=== PATIENT | female | born 1985 | race African-American/Black ===

== ENCOUNTER 2016-07-13 17:28 | Emergency (ER) | payer OTHER ==
[~2016-07-13] VITALS: Ht 154.9 cm; Wt 42.6 kg
[~2016-07-13 17:28] MED LIST: APAP500 PO; DERMOPLAST SPRA56 ML; IBUPROFEN 600600 M1 PO; NORCO 5-325 TA1 EACH PO; TUCKS1 EAC1 TP
[2016-07-13] MEDS ORDERED: PAROXETINE HCL20 MG PO (17:33)
[2016-07-13 17:51] LABS: ABSOLUTE NEUTROPHILS 6.3 thou/uL (1.4-8.2); BASOPHILS 0.6 % (0.0-2.0); EOSINOPHILS 0.2 % (0.0-3.0); HEMATOCRIT 40.8 % (37.0-47.0); HEMOGLOBIN 13.6 gm/dL (12.0-15.0); LYMPHOCYTES 14.2 % (24.0-44.0); MCHC 33.3 % (28.0-37.0); MCV 90.1 fL (80.0-100.0); MONOCYTES 2.7 % (1.0-8.0); PLATELET COUNT 277 thou/uL (150-400); POLYS 82.3 % (36.0-66.0); RBC 4.53 mil/uL (4.20-5.00); WBC 7.7 thou/uL (4.0-11.0)
[2016-07-13 17:56] LABS: CALCIUM 8.7 mg/dL (8.5-10.1); CREATININE 0.8 mg/dL (0.6-1.3); POTASSIUM 3.5 mmol/L (3.5-5.1)
[2016-07-13 18:00] LABS: MANUAL DIFF NO
[2016-07-13 18:02] LABS: ALBUMIN 4.1 g/dL (3.4-5.0); TOTAL BILIRUBIN 0.2 mg/dL (<0.1-1.0); TOTAL PROTEIN 7.6 g/dL (6.4-8.2)
[2016-07-13 18:10] LABS: URINE BILIRUBIN NEGATIVE (Negative); URINE BLOOD NEGATIVE (Negative); URINE COLOR YELLOW; URINE GLUCOSE-RANDOM* NEGATIVE (Negative); URINE KETONES NEGATIVE (Negative); URINE NITRITE NEGATIVE (Negative); URINE PROTEIN (DIPSTICK) NEGATIVE (Negative); URINE SPECIFIC GRAVITY 1.025 (1.003-1.035); URINE UROBILINOGEN 0.2 E.U./dl (0.2-1.0)
[2016-07-13] MEDS ORDERED: PROTONIX 20 MG20 M1 PO (18:26)
[2016-07-13] MEDS ORDERED: ONDANSETRON HCL4 M2 PO (18:26)
[2016-07-13 18:47] VITALS: BP 134/79
== END 2016-07-13 18:48 | disposition home or self-care (01) ==
LOC: ER 17:28
PROVIDERS: Nurse Practitioner Family
DX: K21.9 Gastro-esophageal reflux disease without esophagitis (principal); J45.909 Unspecified asthma, uncomplicated; F41.9 Anxiety disorder, unspecified; F17.210 Nicotine dependence, cigarettes, uncomplicated

== ENCOUNTER 2017-11-23 18:33 | Emergency (ER) | payer OTHER ==
[~2017-11-23] VITALS: Ht 152.4 cm; Wt 42.2 kg
[~2017-11-23 18:33] MED LIST changes: +ONDANSETRON HCL4 M2 PO; +PAROXETINE HCL20 MG PO; +PROTONIX 20 MG20 M1 PO
[2017-11-23] MEDS ORDERED: CELEXA10 MG PO (19:06)
[2017-11-23] MEDS ORDERED: ACCUNEB SO1.25 MG/1 INH (19:06)
[2017-11-23 19:18] LABS: ABSOLUTE NEUTROPHILS 11.1 thou/uL (1.4-8.2); BASOPHILS 0.3 % (0.0-2.0); EOSINOPHILS 0.6 % (0.0-3.0); HEMATOCRIT 38.6 % (37.0-47.0); HEMOGLOBIN 12.9 gm/dL (12.0-15.0); LYMPHOCYTES 12.2 % (24.0-44.0); MCH 29.6 pg (26.0-34.0); MCHC 33.5 g/dL (28.0-37.0); MCV 88.6 fL (80.0-100.0); MONOCYTES 4.5 % (1.0-8.0); PLATELET COUNT 319 thou/uL (150-400); POLYS 82.4 % (36.0-66.0); RBC 4.36 mil/uL (4.20-5.00); RDW 13.3 % (10.5-14.5); WBC 13.5 thou/uL (4.0-11.0)
[2017-11-23 19:26] LABS: CALCIUM 8.9 mg/dL (8.5-10.1); POTASSIUM 3.5 mmol/L (3.5-5.1)
[2017-11-23 19:31] LABS: ALBUMIN 3.4 g/dL (3.4-5.0); TOTAL BILIRUBIN 0.6 mg/dL (<0.1-1.0); TOTAL PROTEIN 8.2 g/dL (6.4-8.2)
[2017-11-23] MEDS ORDERED: DOXYCYCLINE 10100 MG PO (19:47)
[2017-11-23 20:05] VITALS: BP 103/64
== END 2017-11-23 20:06 | disposition home or self-care (01) ==
LOC: ER 18:33
PROVIDERS: Emergency Medicine
DX: J18.9 Pneumonia, unspecified organism (principal); J45.909 Unspecified asthma, uncomplicated; K21.9 Gastro-esophageal reflux disease without esophagitis; F41.9 Anxiety disorder, unspecified; F17.210 Nicotine dependence, cigarettes, uncomplicated

== ENCOUNTER 2018-03-29 11:01 | Emergency (ER) | payer OTHER ==
[~2018-03-29] VITALS: Ht 152.4 cm; Wt 45.4 kg
[~2018-03-29 11:01] MED LIST changes: +ACCUNEB SO1.25 MG/1 INH; +CELEXA10 MG PO; +DOXYCYCLINE 10100 MG PO
[2018-03-29] MEDS ORDERED: ZANTAC 150MG T150 MG PO (11:10)
[2018-03-29] MEDS ORDERED: TRAMADOL 50 MG50 MG PO (11:28)
[2018-03-29] MEDS ORDERED: CELEXA10 MG PO (11:28)
[2018-03-29] MEDS ORDERED: PENICILLIN VK500 M1 PO (11:28)
[2018-03-29 11:50] VITALS: BP 139/86
== END 2018-03-29 11:50 | disposition home or self-care (01) ==
LOC: ER 11:01
DX: K04.7 Periapical abscess without sinus (principal); K02.9 Dental caries, unspecified; F17.210 Nicotine dependence, cigarettes, uncomplicated; K21.9 Gastro-esophageal reflux disease without esophagitis; F41.9 Anxiety disorder, unspecified; J45.909 Unspecified asthma, uncomplicated

== ENCOUNTER 2018-08-21 19:53 | Emergency (ER) | payer OTHER ==
[~2018-08-21] VITALS: Ht 152.4 cm; Wt 46.3 kg
[~2018-08-21 19:53] MED LIST changes: +PENICILLIN VK500 M1 PO; +TRAMADOL 50 MG50 MG PO; +ZANTAC 150MG T150 MG PO
[2018-08-21] MEDS ORDERED: MOBIC7.5 MG PO (20:40)
[2018-08-21 21:16] VITALS: BP 124/77
== END 2018-08-21 21:17 | disposition home or self-care (01) ==
LOC: ER 19:53
DX: M72.2 Plantar fascial fibromatosis (principal); K21.9 Gastro-esophageal reflux disease without esophagitis; F41.9 Anxiety disorder, unspecified; J45.909 Unspecified asthma, uncomplicated; F17.210 Nicotine dependence, cigarettes, uncomplicated

== ENCOUNTER 2019-02-20 21:14 | Emergency (ER) | payer OTHER ==
[~2019-02-20] VITALS: Ht 152.4 cm; Wt 43.1 kg
[~2019-02-20 21:14] MED LIST changes: +MOBIC7.5 MG PO
[2019-02-20] MEDS ORDERED: PENICILLIN V P500 MG PO (23:32)
[2019-02-20 23:35] VITALS: BP 119/76
--- NOTE | 2019-02-21 08:31 | EKG ---
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
== END 2019-02-20 23:36 | disposition home or self-care (01) ==
LOC: ER 21:14
DX: J02.0 Streptococcal pharyngitis (principal); F17.210 Nicotine dependence, cigarettes, uncomplicated; K21.9 Gastro-esophageal reflux disease without esophagitis; J45.909 Unspecified asthma, uncomplicated; F41.9 Anxiety disorder, unspecified